=== PATIENT | female | born 1975 | race Caucasian/White ===

== ENCOUNTER 2018-08-24 02:53 | Emergency (ER) | payer MEDICAID ==
[~2018-08-24] VITALS: Ht 152.4 cm; Wt 74.8 kg
[2018-08-24 03:01] VITALS: BP 133/71
[2018-08-24] MEDS ORDERED: ONDANSETRON 4 MG ODT PO ONE (03:15)
[2018-08-24] MEDS ORDERED: FAMOTIDINE 20 MG TAB PO ONE (03:15)
[2018-08-24] MEDS ORDERED: LIDOCAINE VISCOUS 2% 20 ML UDC PO ONE (03:20)
[2018-08-24] MEDS ORDERED: ALUMINUM HYD/MAG/SIMETHICONE 30 ML UDC PO ONE (03:20)
[2018-08-24 04:20] LABS: BASOPHILS % (AUTO) 0.7 % (0.0-2.0); EOSINOPHILS # (AUTO) 0.1 K/uL (0-0.4); EOSINOPHILS % (AUTO) 2.9 % (0.0-4.0); HEMATOCRIT 44.8 % (36-48); HEMOGLOBIN 15.2 g/dL (12.0-16.0); LYMPHOCYTES # (AUTO) 1.3 K/uL (2.5-16.5); LYMPHOCYTES % (AUTO) 32.6 % (20.5-51.1); MEAN CORPUSCULAR HEMOGLOBIN 30 pg (27-31); MEAN CORPUSCULAR HGB CONC 34 g/dL (33-37); MEAN CORPUSCULAR VOLUME 89.2 fL (80-94); MONOCYTES # (AUTO) 0.4 K/uL (0.8-1.0); MONOCYTES % (AUTO) 9.4 % (1.7-9.3); NEUTROPHILS # (AUTO) 2.2 K/uL (1.8-7.7); NEUTROPHILS % (AUTO) 54.4 % (42.2-75.2); PLATELET COUNT (AUTO) 150 K/uL (140-450); RED BLOOD CELL COUNT(AUTO) 5.03 MIL/uL (4.20-5.40); RED CELL DISTRIBUTION WIDTH 12.9 % (11.6-13.7); WHITE BLOOD COUNT (AUTO) 4.1 K/uL (4.8-10.8)
[2018-08-24 04:30] LABS: ANION GAP 13.7 (8-16); CARBON DIOXIDE 26.1 mmol/L (21-32); CREATININE 0.6 mg/dL (0.6-1.3); POTASSIUM 3.8 mmol/L (3.5-5.1)
[2018-08-24 04:37] LABS: ALBUMIN 3.4 g/dL (3.4-5.0); TOTAL BILIRUBIN 0.4 mg/dL (0.0-1.0)
[2018-08-24 05:50] VITALS: BP 118/74
== END 2018-08-24 05:50 | disposition home or self-care (01) ==
LOC: MED 02:53
DX: K52.9 Noninfective gastroenteritis and colitis, unspecified (principal)
CPT/HCPCS: 36415; 80053; 83690; 85025; 99284; Q0162

== ENCOUNTER 2023-10-26 09:37 | Emergency (ER) | payer MEDICAID, OTHER ==
[~2023-10-26] VITALS: Ht 154.9 cm; Wt 68.9 kg
[2023-10-26 09:41] VITALS: BP 117/73; PULSE 80; RESP 18; TEMP 97.3; O2SAT 98
[2023-10-26 10:04] VITALS: BP 126/72; PULSE 82; TEMP 97.7; O2SAT 96
[2023-10-26] MEDS ORDERED: FLUC150T78 PO (11:24)
[2023-10-26] MEDS ORDERED: IBUP-2213 PO (11:24)
[2023-10-26] MEDS ORDERED: HYD1C TP (11:24)
== END 2023-10-26 11:32 | disposition home or self-care (01) ==
LOC: MED 09:37
DX: R30.0 Dysuria (principal); B37.9 Candidiasis, unspecified; R50.9 Fever, unspecified; Z79.899 Other long term (current) drug therapy
CPT/HCPCS: 81002; 81025; 99283

== ENCOUNTER 2023-11-06 09:54 | Emergency (ER) | payer OTHER ==
[~2023-11-06] VITALS: Ht 152.4 cm; Wt 68.0 kg
[~2023-11-06 09:54] MED LIST: FLUC150T78 PO; HYD1C TP; IBUP-2213 PO
[2023-11-06 10:08] VITALS: BP 141/88; PULSE 105; RESP 18; TEMP 98; O2SAT 98
[2023-11-06] MEDS: KETOROLAC 30 MG/ML VIAL IVP ONE (11:18)
[2023-11-06] MEDS: NACL 0.9% 1,000 ML IV SCH (11:19)
[2023-11-06 12:12] VITALS: O2SAT 97
[2023-11-06 12:34] LABS: CARBON DIOXIDE 26.8 mmol/L (21-32); CREATININE 0.7 mg/dL (0.6-1.3); POTASSIUM 3.8 mmol/L (3.5-5.1)
[2023-11-06 12:43] LABS: BILIRUBIN,URINE NEGATIVE (NEGATIVE); BLOOD, URINE TRACE-I (NEGATIVE); COLOR,URINE YELLOW (YELLOW); LEUKOCYTE ESTERASE ,URINE 1+ (NEGATIVE); NITRITE, URINE NEGATIVE (NEGATIVE); PH,URINE 6.5 (5.0-9.0); PROTEIN,URINE NEGATIVE (NEGATIVE); UGLUCOSE 3+ (NEGATIVE); UROBILINOGEN,URINE 0.2 EU/dL (0.2 - 1)
[2023-11-06 12:46] LABS: BASOPHILS % (AUTO) 0.6 % (0.0-2.0); EOSINOPHILS # (AUTO) 0.1 K/uL (0-0.4); EOSINOPHILS % (AUTO) 0.8 % (0.0-4.0); HEMATOCRIT 45.4 % (36-48); HEMOGLOBIN 16.1 g/dL (12.0-16.0); LYMPHOCYTES # (AUTO) 1.9 K/uL (2.5-16.5); LYMPHOCYTES % (AUTO) 27.9 % (20.5-51.1); MEAN CORPUSCULAR HEMOGLOBIN 32 pg (27-31); MEAN CORPUSCULAR HGB CONC 36 g/dL (33-37); MEAN CORPUSCULAR VOLUME 88.7 fL (80-94); MONOCYTES # (AUTO) 0.4 K/uL (0.8-1.0); MONOCYTES % (AUTO) 6.3 % (1.7-9.3); NEUTROPHILS # (AUTO) 4.3 K/uL (1.8-7.7); NEUTROPHILS % (AUTO) 64.4 % (42.2-75.2); PLATELET COUNT (AUTO) 128 K/uL (140-450); RED BLOOD CELL COUNT(AUTO) 5.12 MIL/uL (4.20-5.40); RED CELL DISTRIBUTION WIDTH 13.2 % (11.6-13.7); WHITE BLOOD COUNT (AUTO) 6.7 K/uL (4.8-10.8)
[2023-11-06 12:58] LABS: RBC,URINE 0-5 /HPF (0-5); SQUAMOUS EPITHELIAL CELL,UR 4-10 (MOD) /LPF (0-3 (FEW))
[2023-11-06 12:59] LABS: APPEARANCE,URINE SLIGHTLY HAZY (CLEAR); BACTERIA,URINE OCCASSIONAL /HPF (None Seen)
[2023-11-06] MEDS ORDERED: NAPR-1704 PO (13:13)
[2023-11-06] MEDS ORDERED: METF-1139 PO (13:13)
[2023-11-06 13:32] VITALS: BP 141/81; PULSE 80; RESP 20; TEMP 98; O2SAT 98
== END 2023-11-06 13:33 | disposition home or self-care (01) ==
LOC: MED 09:54
DX: M75.32 Calcific tendinitis of left shoulder (principal); E11.65 Type 2 diabetes mellitus with hyperglycemia; Z79.4 Long term (current) use of insulin; Z79.899 Other long term (current) drug therapy
CPT/HCPCS: 36415; 73030; 80048; 81001; 82803; 82948; 85025; 87086; 93005; 96361; 96374; 99285; J1885; J7030

== ENCOUNTER 2024-02-20 04:25 | Emergency (ER) | payer OTHER ==
[~2024-02-20] VITALS: Ht 154.9 cm; Wt 74.8 kg
[~2024-02-20 04:25] MED LIST changes: +METF-1139 PO; +NAPR-1704 PO
[2024-02-20 04:38] VITALS: BP 135/72; PULSE 75; RESP 16; TEMP 98.3; O2SAT 98
[2024-02-20 04:43] VITALS: O2SAT 98
[2024-02-20] MEDS: predniSONE 20 MG TAB PO ONE (05:06)
[2024-02-20] MEDS ORDERED: ACYC-278 PO (05:34)
[2024-02-20] MEDS ORDERED: PRED20TA5 PO (05:34)
[2024-02-20] MEDS ORDERED: MINE3.5O30 OP (05:34)
[2024-02-20 06:00] VITALS: BP 132/80; PULSE 70; RESP 16; TEMP 98.2; O2SAT 98
== END 2024-02-20 06:00 | disposition home or self-care (01) ==
LOC: MED 04:25
DX: G51.0 Bell's palsy (principal); E11.9 Type 2 diabetes mellitus without complications; Z79.1 Long term (current) use of non-steroidal anti-inflammatories (NSAID); Z79.84 Long term (current) use of oral hypoglycemic drugs; Z79.899 Other long term (current) drug therapy
CPT/HCPCS: 70450; 82948; 99284; J7512